=== PATIENT | male | born 1975 | race African-American/Black ===

== ENCOUNTER 2016-12-20 15:11 | Emergency (ER) | payer MEDICARE, MEDICAID ==
[~2016-12-20 15:11] MED LIST: AMLO10TA80 PO; ATOR10TA69 PO; BENA40TA3 PO; FLUT1DIS5 INH; FURO40TA5 PO; GABA-529 PO; IBUP-2030 PO; MAX PO; METF850T2 PO; METO5TAB2 PO; MONT10TA24 PO; NASOI INH; OMEP20CA4 PO; TIOT18CA3 INH
== END 2016-12-20 16:57 | disposition left against medical advice (07) ==
LOC: ER 16:12
DX: Z53.21 Procedure and treatment not carried out due to patient leaving prior to being seen by health care provider (principal)

== ENCOUNTER → 2018-02-22 | Day surgery (SDC) | payer MEDICARE, MEDICAID ==
[~2018-02-22] MED LIST changes: -BENA40TA3 PO; +BENA40TA9 PO; +LIDOCAINE HCL 1% 20ML VIAL (Pyxis) INJ ONE; +METF-415 PO; -METF850T2 PO; +SODIUM BICARBONATE 4% (2.4MEQ) 5ML VIAL IV ONE
== END | disposition home or self-care (01) ==
LOC: RAD 09:22
PROVIDERS: ATTEND Internal Medicine
DX: R59.9 Enlarged lymph nodes, unspecified (principal); J44.1 Chronic obstructive pulmonary disease with (acute) exacerbation; E78.00 Pure hypercholesterolemia, unspecified; I25.10 Atherosclerotic heart disease of native coronary artery without angina pectoris; I11.0 Hypertensive heart disease with heart failure; I50.30 Unspecified diastolic (congestive) heart failure; F17.210 Nicotine dependence, cigarettes, uncomplicated; Z95.0 Presence of cardiac pacemaker; Z98.890 Other specified postprocedural states; Z79.899 Other long term (current) drug therapy; Z79.1 Long term (current) use of non-steroidal anti-inflammatories (NSAID)
CPT/HCPCS: 38505; 76942; 88305; J3490

== ENCOUNTER 2018-06-19 14:05 | Inpatient (IN) | payer MEDICARE, MEDICAID ==
[~2018-06-19] VITALS: Ht 175.3 cm; Wt 144.2 kg
[~2018-06-19 14:05] MED LIST changes: -LIDOCAINE HCL 1% 20ML VIAL (Pyxis) INJ ONE; -SODIUM BICARBONATE 4% (2.4MEQ) 5ML VIAL IV ONE
[2018-06-19] MEDS ORDERED: SODIUM CHLORIDE 0.9% 1,000 ML IV ONE ×2 (15:13→17:55)
[2018-06-19 17:38] LABS: BASOPHILS % 0.5 % (0.0-2.0); EOSINOPHILS % 2.6 % (0.0-5.0); HEMATOCRIT. 34.3 % (42.0-52.0); HEMOGLOBIN. 10.3 g/dL (14.0-18.0); LYMPHOCYTES % 9.7 % (20.0-50.0); MEAN CORPUSCULAR HEMOGLOBIN 24.2 pg (28.0-32.0); MEAN CORPUSCULAR VOLUME 80.2 fL (80.0-94.0); MONOCYTES % 7.7 % (2.0-8.0); NEUTROPHILS % 79.5 % (40.0-76.0); PLATELET 371 x1000/uL (130-400); RED BLOOD CELL COUNT 4.28 mill/uL (4.7-6.1); RED CELL DISTRIBUTION WIDTH 19.8 % (11.6-14.6)
[2018-06-19 17:46] LABS: CHLORIDE 108 mEq/L (98-107)
[2018-06-19 17:48] LABS: CLARITY URINE CLEAR (CLEAR); COLOR URINE YELLOW (YELLOW); KETONES URINE NEGATIVE (NEGATIVE); LEUKOCYTE ESTERASE URINE NEGATIVE (NEGATIVE); NITRITE URINE NEGATIVE (NEGATIVE); OCCULT BLOOD URINE NEGATIVE (NEGATIVE); PROTEIN URINE NEGATIVE (NEGATIVE); SPECIFIC GRAVITY URINE 1.011 (1.005-1.030); UROBILINOGEN URINE 0.2 E.U./dL (0.2-1.0)
[2018-06-19 17:52] LABS: INR 1.1; PROTHROMBIN TIME 11.3 sec (9.1-11.1)
[2018-06-19] MEDS ORDERED: PAMIDRONATE DISODIUM 60 MG in SODIUM CHLORIDE 0.9% 500 ML IV ONE (21:30)
[2018-06-19 21:44] VITALS: BP 132/68
[2018-06-19 22:00] VITALS: BP 139/66
[2018-06-19] MEDS ORDERED: PAMIDRONATE DISODIUM 90 MG in SODIUM CHLORIDE 0.9% 500 ML IV NR (23:30)
[2018-06-20] VITALS (12 sets, daily range): BP systolic 94–140; BP diastolic 43–89
[2018-06-20] MEDS: ATORVASTATIN CALCIUM 10MG TABLET PO SCH ×2 (00:37→20:27)
[2018-06-20] MEDS: OMEPRAZOLE 20MG CAPSULE EXTENDED RELEASE PO SCH ×2 (00:37→20:28)
[2018-06-20] MEDS ORDERED: DILTIAZEM HCL 180MG CAPSULE CD 24HR PO SCH (01:00)
[2018-06-20] MEDS: IPRATROPIUM/ALBUTEROL 0.5-3(2.5)MG/3ML NEB HHN SCH ×4 (01:10→15:55)
[2018-06-20] MEDS: HYDROMORPHONE HCL 2MG TABLET PO PRN ×2 (03:05→08:40)
[2018-06-20 07:10] LABS: CHLORIDE 110 mEq/L (98-107)
[2018-06-20 07:18] LABS: HEMATOCRIT. 29.4 % (42.0-52.0); MEAN CORPUSCULAR HEMOGLOBIN 24.1 pg (28.0-32.0); MEAN CORPUSCULAR VOLUME 78.5 fL (80.0-94.0); MEAN PLATELET VOLUME 8.1 fl (7.4-10.4); PLATELET 380 x1000/uL (130-400); RED BLOOD CELL COUNT 3.75 mill/uL (4.7-6.1); RED CELL DISTRIBUTION WIDTH 19.8 % (11.6-14.6)
[2018-06-20 07:25] LABS: LDL CHOLESTEROL 68 mg/dL (5-100)
[2018-06-20 07:27] LABS: HDL CHOLESTEROL 46 mg/dL (40-59)
[2018-06-20] MEDS ORDERED: DILT180C54 PO (08:21)
[2018-06-20] MEDS: ALLOPURINOL 300 MG TABLET PO SCH (08:22)
[2018-06-20] MEDS: APIXABAN 5 MG TABLET PO SCH ×2 (08:23→17:26)
[2018-06-20] MEDS: BENAZEPRIL 10MG TABLET PO SCH ×3 (08:23→09:00)
[2018-06-20] MEDS ORDERED: HYDROMORPHONE PO (08:28)
[2018-06-20] MEDS ORDERED: ALLO300T2 PO (08:29)
[2018-06-20] MEDS ORDERED: APIX5TAB PO (08:31)
[2018-06-20] MEDS ORDERED: [UNRECOGNIZED DRUG - OTHER] PO (08:31)
[2018-06-20] MEDS ORDERED: CHOL200077 PO (08:33)
[2018-06-20] MEDS: SODIUM CHLORIDE 0.45% 1,000 ML IV SCH (18:46)
[2018-06-20 19:55] LABS: T4 FREE 1.09 ng/dL (0.76-1.46)
[2018-06-21] VITALS (12 sets, daily range): BP systolic 94–139; BP diastolic 46–101
[2018-06-21] MEDS: HYDROMORPHONE HCL 2MG TABLET PO PRN (04:19)
[2018-06-21 04:46] LABS: PLATELET ESTIMATE NORMAL
[2018-06-21] MEDS: IPRATROPIUM/ALBUTEROL 0.5-3(2.5)MG/3ML NEB HHN SCH ×4 (04:55→20:58)
[2018-06-21 06:56] LABS: CHLORIDE 107 mEq/L (98-107)
[2018-06-21 07:06] LABS: HEMATOCRIT. 33.1 % (42.0-52.0); HEMOGLOBIN. 10.1 g/dL (14.0-18.0); MEAN CORPUSCULAR HEMOGLOBIN 24.5 pg (28.0-32.0); MEAN CORPUSCULAR VOLUME 80.6 fL (80.0-94.0); PLATELET 361 x1000/uL (130-400); RED BLOOD CELL COUNT 4.11 mill/uL (4.7-6.1); RED CELL DISTRIBUTION WIDTH 19.6 % (11.6-14.6)
[2018-06-21] MEDS: IPRATROPIUM/ALBUTEROL 0.5-3(2.5)MG/3ML NEB HHN PRN (07:32)
[2018-06-21] MEDS: APIXABAN 5 MG TABLET PO SCH ×2 (09:23→17:14)
[2018-06-21] MEDS: ALLOPURINOL 300 MG TABLET PO SCH (09:23)
[2018-06-21] MEDS: BENAZEPRIL 10MG TABLET PO SCH (09:24)
[2018-06-21] MEDS ORDERED: OMEP40CA34 PO (13:28)
[2018-06-21] MEDS ORDERED: BENA20TA10 PO (13:28)
[2018-06-21] MEDS ORDERED: PRED10TA23 PO (13:35)
[2018-06-21] MEDS ORDERED: POTA20TA82 PO (13:35)
[2018-06-21] MEDS ORDERED: ALBU18HF2 IH (13:35)
[2018-06-21 13:44] LABS: PLATELET ESTIMATE NORMAL
[2018-06-21] MEDS: SODIUM CHLORIDE 0.45% 1,000 ML IV SCH (17:17)
[2018-06-21 17:35] LABS: BG BASE EXCESS 1.4 mmol/L (-2.0-2.0); BG CARBOXYHEMOGLOBIN 0.1 % (0.5-1.5); BG DEOXYHEMOGLOBIN 7.1 % (0.0-5.0); BG FRACTION INSPIRED OXYGEN 30; BG HCO3 ACT 26.4 mmol/L (22.0-26.0); BG METHEMOGLOBIN 0.3 % (0.0-1.5); BG OXYGEN SATURATION 92.9 % (92.0-98.5); BG OXYHEMOGLOBIN 92.5 % (94.0-97.0); BG PCO2 43.6 mmHg (35.0-45.0); BG PO2 64.9 mmHg (75.0-100.0); BG SAMPLE SITE RIGHT RADIAL; BG TOTAL HEMOGLOBIN 9.7 g/dL (12.0-18.0); BG VENT MODE NASAL CANNULA
[2018-06-21 19:16] LABS: PHOSPHORUS 1.9 mg/dL (2.5-4.9)
[2018-06-21] MEDS: ATORVASTATIN CALCIUM 10MG TABLET PO SCH (20:47)
[2018-06-21] MEDS: OMEPRAZOLE 20MG CAPSULE EXTENDED RELEASE PO SCH (20:47)
[2018-06-21] MEDS: CARTIA XT 180 MG PO SCH (20:51)
[2018-06-21] MEDS: FUROSEMIDE 40MG/4ML VIAL IVP SCH (22:09)
[2018-06-21] MEDS: METOPROLOL TARTRATE 25MG TABLET PO SCH (23:45)
[2018-06-22] VITALS (12 sets, daily range): BP systolic 106–141; BP diastolic 38–95
[2018-06-22] MEDS: IPRATROPIUM/ALBUTEROL 0.5-3(2.5)MG/3ML NEB HHN PRN ×2 (00:44→04:41)
[2018-06-22] MEDS: SODIUM CHLORIDE 0.45% 1,000 ML IV SCH ×3 (03:34→21:17)
[2018-06-22] MEDS: HYDROMORPHONE HCL 2MG TABLET PO PRN (06:23)
[2018-06-22 06:52] LABS: CHLORIDE 105 mEq/L (98-107)
[2018-06-22 07:04] LABS: PHOSPHORUS 1.8 mg/dL (2.5-4.9)
[2018-06-22] MEDS: IPRATROPIUM/ALBUTEROL 0.5-3(2.5)MG/3ML NEB HHN SCH ×5 (07:42→23:26)
[2018-06-22 08:59] LABS: BG BASE EXCESS 6.2 mmol/L (-2.0-2.0); BG CARBOXYHEMOGLOBIN 0.8 % (0.5-1.5); BG DEOXYHEMOGLOBIN 4.8 % (0.0-5.0); BG FRACTION INSPIRED OXYGEN 28; BG HCO3 ACT 30.8 mmol/L (22.0-26.0); BG OXYGEN SATURATION 95.2 % (92.0-98.5); BG OXYHEMOGLOBIN 94.4 % (94.0-97.0); BG PCO2 45.3 mmHg (35.0-45.0); BG PH 7.451 (7.350-7.450); BG PO2 71.7 mmHg (75.0-100.0); BG SAMPLE SITE RIGHT BRACHIAL; BG TOTAL HEMOGLOBIN 9.8 g/dL (12.0-18.0); BG VENT MODE NASAL CANNULA
[2018-06-22] MEDS: POTASSIUM-SODIUM PHOSPHATE POWDER PACKET PO SCH ×2 (09:26→17:16)
[2018-06-22] MEDS: ALLOPURINOL 300 MG TABLET PO SCH (09:27)
[2018-06-22] MEDS: METOPROLOL TARTRATE 25MG TABLET PO SCH ×2 (09:27→21:26)
[2018-06-22] MEDS: APIXABAN 5 MG TABLET PO SCH ×2 (09:27→17:16)
[2018-06-22] MEDS: BENAZEPRIL 10MG TABLET PO SCH (09:27)
[2018-06-22] MEDS: CARTIA XT 180 MG PO SCH (09:28)
[2018-06-22] MEDS ORDERED: POTASSIUM PHOS,M-BASIC-D-BASIC 15 MMOL in DEXT 5% WATER 245 ML IV SCH (11:00)
[2018-06-22] MEDS: MAGNESIUM 2 G PREMIX 50 ML IV SCH ×2 (11:23→13:00)
[2018-06-22] MEDS: FUROSEMIDE 40MG/4ML VIAL IVP SCH ×2 (11:25→13:00)
[2018-06-22] MEDS ORDERED: LIDOCAINE HCL/PF 1% 2ML VIAL ONE (14:10)
[2018-06-22] MEDS: ATORVASTATIN CALCIUM 10MG TABLET PO SCH (21:24)
[2018-06-22] MEDS: ENOXAPARIN 150MG/ML SYR SUBCUT SCH (22:30)
[2018-06-23] VITALS (12 sets, daily range): BP systolic 108–139; BP diastolic 51–72
[2018-06-23] MEDS: HYDROMORPHONE HCL 2MG TABLET PO PRN ×3 (00:03→22:39)
[2018-06-23] MEDS: IPRATROPIUM/ALBUTEROL 0.5-3(2.5)MG/3ML NEB HHN SCH ×5 (02:30→21:23)
[2018-06-23] MEDS: SODIUM CHLORIDE 0.45% 1,000 ML IV SCH ×4 (04:03→22:44)
[2018-06-23 07:09] LABS: BASOPHILS % 1.2 % (0.0-2.0); EOSINOPHILS % 5.1 % (0.0-5.0); HEMATOCRIT. 32.6 % (42.0-52.0); LYMPHOCYTES % 13.6 % (20.0-50.0); MEAN CORPUSCULAR HEMOGLOBIN 24.4 pg (28.0-32.0); MEAN CORPUSCULAR VOLUME 79.5 fL (80.0-94.0); MEAN PLATELET VOLUME 8.1 fl (7.4-10.4); MONOCYTES % 9.9 % (2.0-8.0); NEUTROPHILS % 70.2 % (40.0-76.0); PLATELET 391 x1000/uL (130-400); RED BLOOD CELL COUNT 4.09 mill/uL (4.7-6.1); RED CELL DISTRIBUTION WIDTH 19.5 % (11.6-14.6)
[2018-06-23 07:14] LABS: CHLORIDE 103 mEq/L (98-107)
[2018-06-23 07:35] LABS: PHOSPHORUS 2.7 mg/dL (2.5-4.9)
[2018-06-23] MEDS: FUROSEMIDE 40MG/4ML VIAL IVP SCH (08:43)
[2018-06-23] MEDS: CARTIA XT 180 MG PO SCH (08:44)
[2018-06-23] MEDS: FAMOTIDINE 20MG TABLET PO SCH ×2 (08:45→22:04)
[2018-06-23] MEDS: BENAZEPRIL 10MG TABLET PO SCH (08:46)
[2018-06-23] MEDS: ALLOPURINOL 300 MG TABLET PO SCH (08:46)
[2018-06-23] MEDS: POTASSIUM-SODIUM PHOSPHATE POWDER PACKET PO SCH ×2 (08:47→17:08)
[2018-06-23] MEDS: METOPROLOL TARTRATE 25MG TABLET PO SCH ×2 (08:47→21:00)
[2018-06-23 09:06] LABS: BG BASE EXCESS 2.8 mmol/L (-2.0-2.0); BG CARBOXYHEMOGLOBIN 0.3 % (0.5-1.5); BG DEOXYHEMOGLOBIN 6.3 % (0.0-5.0); BG FRACTION INSPIRED OXYGEN 32; BG HCO3 ACT 28.5 mmol/L (22.0-26.0); BG METHEMOGLOBIN 0.3 % (0.0-1.5); BG OXYGEN SATURATION 93.7 % (92.0-98.5); BG OXYHEMOGLOBIN 93.1 % (94.0-97.0); BG PCO2 49.5 mmHg (35.0-45.0); BG PH 7.378 (7.350-7.450); BG PO2 72.2 mmHg (75.0-100.0); BG SAMPLE SITE RIGHT RADIAL; BG TOTAL HEMOGLOBIN 9.9 g/dL (12.0-18.0); BG VENT MODE NASAL CANNULA
[2018-06-23] MEDS: ENOXAPARIN 150MG/ML SYR SUBCUT SCH ×2 (09:59→22:09)
[2018-06-23] MEDS ORDERED: LIDOCAINE HCL 1% 20ML VIAL (Pyxis) INJ ONE (15:10)
[2018-06-23] MEDS ORDERED: SODIUM BICARBONATE 4% (2.4MEQ) 5ML VIAL IV ONE (15:10)
[2018-06-23] MEDS ORDERED: MAGNESIUM 2 G PREMIX 50 ML IV SCH (16:00)
[2018-06-23] MEDS: ATORVASTATIN CALCIUM 10MG TABLET PO SCH (22:03)
[2018-06-24] VITALS (12 sets, daily range): BP systolic 95–131; BP diastolic 55–85
[2018-06-24] MEDS: HYDROMORPHONE HCL 2MG TABLET PO PRN ×2 (05:31→18:44)
[2018-06-24 06:59] LABS: HEPATITIS B SURFACE AB < 3.1 mIU/mL
[2018-06-24 07:09] LABS: HEPATITIS B SURFACE ANTIGEN NEGATIVE
[2018-06-24 07:16] LABS: BASOPHILS % 1.1 % (0.0-2.0); EOSINOPHILS % 3.7 % (0.0-5.0); HEMATOCRIT. 30.9 % (42.0-52.0); HEMOGLOBIN. 9.5 g/dL (14.0-18.0); LYMPHOCYTES % 10.9 % (20.0-50.0); MEAN CORPUSCULAR HEMOGLOBIN 24.4 pg (28.0-32.0); MEAN CORPUSCULAR VOLUME 79.2 fL (80.0-94.0); MEAN PLATELET VOLUME 8.7 fl (7.4-10.4); MONOCYTES % 9.7 % (2.0-8.0); NEUTROPHILS % 74.6 % (40.0-76.0); PLATELET 362 x1000/uL (130-400)
[2018-06-24 08:02] LABS: CHLORIDE 101 mEq/L (98-107)
[2018-06-24 08:10] LABS: PHOSPHORUS 2.1 mg/dL (2.5-4.9)
[2018-06-24] MEDS: POTASSIUM-SODIUM PHOSPHATE POWDER PACKET PO SCH ×2 (08:54→17:00)
[2018-06-24] MEDS: BENAZEPRIL 10MG TABLET PO SCH (08:54)
[2018-06-24] MEDS: CARTIA XT 180 MG PO SCH (08:54)
[2018-06-24] MEDS: FUROSEMIDE 40MG/4ML VIAL IVP SCH (08:55)
[2018-06-24] MEDS: FAMOTIDINE 20MG TABLET PO SCH ×2 (08:55→21:39)
[2018-06-24] MEDS: ALLOPURINOL 300 MG TABLET PO SCH (08:55)
[2018-06-24] MEDS: METOPROLOL TARTRATE 25MG TABLET PO SCH ×2 (08:55→21:39)
[2018-06-24] MEDS: IPRATROPIUM/ALBUTEROL 0.5-3(2.5)MG/3ML NEB HHN SCH ×4 (09:14→20:29)
[2018-06-24] MEDS: ENOXAPARIN 150MG/ML SYR SUBCUT SCH ×2 (09:59→21:39)
[2018-06-24] MEDS: SODIUM CHLORIDE 0.45% 1,000 ML IV SCH (09:59)
[2018-06-24] MEDS: POTASSIUM CHLORIDE 20MEQ TABLET SR PO SCH ×2 (10:45→11:17)
[2018-06-24] MEDS ORDERED: POTASSIUM-SODIUM PHOSPHATE POWDER PACKET PO SCH (10:45)
[2018-06-24] MEDS: SODIUM CHLORIDE 0.9% 1,000 ML IV SCH (12:29)
[2018-06-24] MEDS ORDERED: ALTEPLASE 2MG/VIAL ITC NR ×2 (16:45)
[2018-06-24] MEDS: ATORVASTATIN CALCIUM 10MG TABLET PO SCH (21:39)
[2018-06-25] VITALS (12 sets, daily range): BP systolic 94–154; BP diastolic 51–127
[2018-06-25] MEDS: IPRATROPIUM/ALBUTEROL 0.5-3(2.5)MG/3ML NEB HHN PRN (01:36)
[2018-06-25] MEDS: SODIUM CHLORIDE 0.9% 1,000 ML IV SCH ×2 (04:27→21:56)
[2018-06-25 06:26] LABS: BASOPHILS % 1.2 % (0.0-2.0); EOSINOPHILS % 4.2 % (0.0-5.0); HEMATOCRIT. 33.8 % (42.0-52.0); HEMOGLOBIN. 10.6 g/dL (14.0-18.0); LYMPHOCYTES % 13.3 % (20.0-50.0); MEAN CORPUSCULAR HEMOGLOBIN 24.6 pg (28.0-32.0); MEAN CORPUSCULAR VOLUME 78.9 fL (80.0-94.0); MEAN PLATELET VOLUME 8.4 fl (7.4-10.4); MONOCYTES % 8.1 % (2.0-8.0); NEUTROPHILS % 73.2 % (40.0-76.0); PLATELET 366 x1000/uL (130-400); RED BLOOD CELL COUNT 4.28 mill/uL (4.7-6.1); RED CELL DISTRIBUTION WIDTH 19.4 % (11.6-14.6)
[2018-06-25 07:07] LABS: CHLORIDE 103 mEq/L (98-107)
[2018-06-25 07:40] LABS: PHOSPHORUS 2.3 mg/dL (2.5-4.9)
[2018-06-25] MEDS ORDERED: HEPARIN 1000 UNITS/ML 10ML ONE (08:27)
[2018-06-25] MEDS ORDERED: LIDOCAINE HCL 1% 20ML VIAL (Pyxis) INJ ONE (08:27)
[2018-06-25] MEDS: IPRATROPIUM/ALBUTEROL 0.5-3(2.5)MG/3ML NEB HHN SCH ×2 (09:00→21:30)
[2018-06-25] MEDS: BENAZEPRIL 10MG TABLET PO SCH (09:00)
[2018-06-25] MEDS: METOPROLOL TARTRATE 25MG TABLET PO SCH ×2 (09:00→22:03)
[2018-06-25] MEDS: POTASSIUM-SODIUM PHOSPHATE POWDER PACKET PO SCH ×3 (09:36→16:53)
[2018-06-25] MEDS: FUROSEMIDE 40MG/4ML VIAL IVP SCH (09:36)
[2018-06-25] MEDS: FAMOTIDINE 20MG TABLET PO SCH ×2 (09:36→22:00)
[2018-06-25] MEDS: CARTIA XT 180 MG PO SCH (09:36)
[2018-06-25] MEDS: ALLOPURINOL 300 MG TABLET PO SCH (09:37)
[2018-06-25] MEDS: ENOXAPARIN 150MG/ML SYR SUBCUT SCH ×2 (09:42→22:00)
[2018-06-25] MEDS: HYDROMORPHONE HCL/PF 2MG/ML CPJ IV PRN ×2 (12:39→22:13)
[2018-06-25] MEDS ORDERED: POTASSIUM PHOS,M-BASIC-D-BASIC 20 MMOL in DEXT 5% WATER 243.3333 ML IV NR (16:00)
[2018-06-25] MEDS: GUAIFENESIN 600MG ER TABLET PO SCH (22:00)
[2018-06-25] MEDS: ATORVASTATIN CALCIUM 10MG TABLET PO SCH (22:00)
[2018-06-26] VITALS (12 sets, daily range): BP systolic 93–131; BP diastolic 46–70
[2018-06-26 06:51] LABS: MEAN CORPUSCULAR HEMOGLOBIN 24.4 pg (28.0-32.0); MEAN CORPUSCULAR VOLUME 79.1 fL (80.0-94.0); MEAN PLATELET VOLUME 7.8 fl (7.4-10.4); PLATELET 309 x1000/uL (130-400); RED BLOOD CELL COUNT 3.67 mill/uL (4.7-6.1); RED CELL DISTRIBUTION WIDTH 19.2 % (11.6-14.6)
[2018-06-26 08:50] LABS: CHLORIDE 105 mEq/L (98-107)
[2018-06-26 08:59] LABS: PHOSPHORUS 3.4 mg/dL (2.5-4.9)
[2018-06-26] MEDS: IPRATROPIUM/ALBUTEROL 0.5-3(2.5)MG/3ML NEB HHN SCH ×4 (08:59→21:18)
[2018-06-26] MEDS: ALLOPURINOL 300 MG TABLET PO SCH (09:55)
[2018-06-26] MEDS: FAMOTIDINE 20MG TABLET PO SCH ×2 (09:55→21:15)
[2018-06-26] MEDS: CARTIA XT 180 MG PO SCH (09:55)
[2018-06-26] MEDS: GUAIFENESIN 600MG ER TABLET PO SCH ×2 (09:55→21:15)
[2018-06-26] MEDS: FUROSEMIDE 40MG/4ML VIAL IVP SCH (09:55)
[2018-06-26] MEDS: POTASSIUM-SODIUM PHOSPHATE POWDER PACKET PO SCH ×3 (09:56→17:16)
[2018-06-26] MEDS: ENOXAPARIN 150MG/ML SYR SUBCUT SCH (09:57)
[2018-06-26] MEDS: BENAZEPRIL 10MG TABLET PO SCH (09:57)
[2018-06-26] MEDS: METOPROLOL TARTRATE 25MG TABLET PO SCH ×2 (09:58→21:17)
[2018-06-26] MEDS: HYDROMORPHONE HCL/PF 2MG/ML CPJ IV PRN ×2 (11:11→21:16)
[2018-06-26 12:01] LABS: PLATELET ESTIMATE NORMAL
[2018-06-26 13:06] LABS: HIV SCREEN 4G Non Reactive (Non Reactive)
[2018-06-26] MEDS: SODIUM CHLORIDE 0.9% 1,000 ML IV SCH (13:27)
[2018-06-26] MEDS ORDERED: MAGNESIUM 2 G PREMIX 50 ML IV NR (13:30)
[2018-06-26] MEDS: ATORVASTATIN CALCIUM 10MG TABLET PO SCH (21:15)
[2018-06-26] MEDS: CINACALCET HCL 30MG TABLET PO SCH (21:15)
[2018-06-27] VITALS (23 sets, daily range): BP systolic 89–138; BP diastolic 41–75
[2018-06-27 06:21] LABS: BASOPHILS % 1.2 % (0.0-2.0); EOSINOPHILS % 2.9 % (0.0-5.0); HEMATOCRIT. 26.9 % (42.0-52.0); HEMOGLOBIN. 8.3 g/dL (14.0-18.0); MEAN CORPUSCULAR HEMOGLOBIN 24.5 pg (28.0-32.0); MONOCYTES % 11.6 % (2.0-8.0); NEUTROPHILS % 72.3 % (40.0-76.0); PLATELET 311 x1000/uL (130-400); RED CELL DISTRIBUTION WIDTH 18.8 % (11.6-14.6)
[2018-06-27] MEDS: IPRATROPIUM/ALBUTEROL 0.5-3(2.5)MG/3ML NEB HHN SCH ×3 (06:30→16:20)
[2018-06-27 06:40] LABS: CHLORIDE 105 mEq/L (98-107)
[2018-06-27 07:12] LABS: PHOSPHORUS 4.3 mg/dL (2.5-4.9)
[2018-06-27] MEDS: ALLOPURINOL 300 MG TABLET PO SCH (08:28)
[2018-06-27] MEDS: GUAIFENESIN 600MG ER TABLET PO SCH ×2 (08:28→22:48)
[2018-06-27] MEDS: CINACALCET HCL 30MG TABLET PO SCH ×2 (08:29→22:49)
[2018-06-27] MEDS: FAMOTIDINE 20MG TABLET PO SCH ×2 (08:29→22:49)
[2018-06-27] MEDS: POTASSIUM-SODIUM PHOSPHATE POWDER PACKET PO SCH ×3 (08:30→17:00)
[2018-06-27] MEDS ORDERED: LIDOCAINE HCL 1% 20ML VIAL (Pyxis) INJ ONE (08:44)
[2018-06-27] MEDS ORDERED: SODIUM BICARBONATE 4% (2.4MEQ) 5ML VIAL IV ONE (08:44)
[2018-06-27] MEDS ORDERED: CEFAZOLIN 1000MG PREMIX 50 ML IV SCH (09:00)
[2018-06-27] MEDS: BENAZEPRIL 10MG TABLET PO SCH (09:00)
[2018-06-27] MEDS: METOPROLOL TARTRATE 25MG TABLET PO SCH ×2 (09:00→22:48)
[2018-06-27] MEDS ORDERED: CEFAZOLIN 1000MG PREMIX 50 ML IV ONE (09:06)
[2018-06-27] MEDS ORDERED: FENTANYL CITRATE/PF 50MCG/ML 2ML VIAL ONE (09:07)
[2018-06-27] MEDS ORDERED: FENTANYL CITRATE/PF 50MCG/ML 2ML VIAL IV NR (09:45)
[2018-06-27] MEDS: HYDROMORPHONE HCL/PF 2MG/ML CPJ IV PRN ×3 (10:42→22:50)
[2018-06-27] MEDS ORDERED: PAMIDRONATE DISODIUM 90 MG in SODIUM CHLORIDE 0.9% 1,000 ML IV SCH (11:00)
[2018-06-27] MEDS: CARTIA XT 180 MG PO SCH (12:35)
[2018-06-27] MEDS: ATORVASTATIN CALCIUM 10MG TABLET PO SCH (22:40)
[2018-06-27] MEDS: PIPERACILLIN/TAZ 3.375G PREMIX 50 ML IV SCH (22:40)
[2018-06-28] VITALS: BP 132/73
[2018-06-28 00:26] LABS: BG BASE EXCESS -0.2 mmol/L (-2.0-2.0); BG CARBOXYHEMOGLOBIN 0.3 % (0.5-1.5); BG FRACTION INSPIRED OXYGEN 28; BG HCO3 ACT 24.2 mmol/L (22.0-26.0); BG METHEMOGLOBIN 0.3 % (0.0-1.5); BG OXYHEMOGLOBIN 94.4 % (94.0-97.0); BG PH 7.421 (7.350-7.450); BG PO2 76.3 mmHg (75.0-100.0); BG SAMPLE SITE RIGHT RADIAL; BG TOTAL HEMOGLOBIN 9.3 g/dL (12.0-18.0); BG VENT MODE ROOM AIR
[2018-06-28] MEDS: PIPERACILLIN/TAZ 3.375G PREMIX 50 ML IV SCH ×2 (03:54→10:20)
[2018-06-28 04:00] VITALS: BP 107/45
[2018-06-28 07:14] LABS: HEMATOCRIT. 27.9 % (42.0-52.0); HEMOGLOBIN. 8.6 g/dL (14.0-18.0); MEAN CORPUSCULAR HEMOGLOBIN 24.3 pg (28.0-32.0); MEAN CORPUSCULAR VOLUME 79.2 fL (80.0-94.0); MEAN PLATELET VOLUME 8.1 fl (7.4-10.4); PLATELET 306 x1000/uL (130-400); RED BLOOD CELL COUNT 3.52 mill/uL (4.7-6.1); RED CELL DISTRIBUTION WIDTH 19.2 % (11.6-14.6)
[2018-06-28 07:36] LABS: CLARITY URINE CLOUDY (CLEAR); COLOR URINE YELLOW (YELLOW); KETONES URINE NEGATIVE (NEGATIVE); LEUKOCYTE ESTERASE URINE NEGATIVE (NEGATIVE); NITRITE URINE NEGATIVE (NEGATIVE); OCCULT BLOOD URINE NEGATIVE (NEGATIVE); PH URINE 6.5 (4.5-8.0); PROTEIN URINE 1+ (NEGATIVE); SPECIFIC GRAVITY URINE 1.011 (1.005-1.030)
[2018-06-28 07:48] LABS: CHLORIDE 105 mEq/L (98-107)
[2018-06-28 08:00] VITALS: BP 136/52
[2018-06-28] MEDS: GUAIFENESIN 600MG ER TABLET PO SCH (08:20)
[2018-06-28] MEDS: BENAZEPRIL 10MG TABLET PO SCH (08:21)
[2018-06-28] MEDS: ALLOPURINOL 300 MG TABLET PO SCH (08:22)
[2018-06-28] MEDS: FAMOTIDINE 20MG TABLET PO SCH (08:22)
[2018-06-28] MEDS: METOPROLOL TARTRATE 25MG TABLET PO SCH (08:22)
[2018-06-28] MEDS: CARTIA XT 180 MG PO SCH (08:23)
[2018-06-28] MEDS: POTASSIUM-SODIUM PHOSPHATE POWDER PACKET PO SCH ×2 (08:23→13:00)
[2018-06-28] MEDS: CINACALCET HCL 30MG TABLET PO SCH (08:28)
[2018-06-28] MEDS: IPRATROPIUM/ALBUTEROL 0.5-3(2.5)MG/3ML NEB HHN SCH ×3 (08:52→16:44)
[2018-06-28 09:43] LABS: PLATELET ESTIMATE NORMAL
[2018-06-28] MEDS: HYDROMORPHONE HCL/PF 2MG/ML CPJ IV PRN ×2 (10:37→15:46)
[2018-06-28 12:09] VITALS: BP 106/63
[2018-06-28 15:44] VITALS: BP 127/64
[2018-06-28 16:03] VITALS: BP 126/62
== END 2018-06-28 18:40 | disposition home or self-care (01) | DRG 180 ==
LOC: ER 14:05 → 3WST 16:23 → EDBEDREQ 16:27 → ENRESERV 20:34 → 3WST 06-24 13:33 → 6WST 06-27 10:24
PROVIDERS: ADMIT Internal Medicine; ATTEND Internal Medicine
PROC: B5181ZA Fluoroscopy of Superior Vena Cava using Low Osmolar Contrast, Guidance (ICD-10-PCS; 2018-06-23)
PROC: B548ZZA Ultrasonography of Superior Vena Cava, Guidance (ICD-10-PCS; 2018-06-23)
PROC: 02HV33Z Insertion of Infusion Device into Superior Vena Cava, Percutaneous Approach (ICD-10-PCS; 2018-06-23)
PROC: 5A1D70Z Performance of Urinary Filtration, Intermittent, Less than 6 Hours Per Day (ICD-10-PCS; 2018-06-23)
PROC: 02PYX3Z Removal of Infusion Device from Great Vessel, External Approach (ICD-10-PCS; 2018-06-25)
PROC: 02H633Z Insertion of Infusion Device into Right Atrium, Percutaneous Approach (ICD-10-PCS; 2018-06-25)
PROC: B2141ZZ Fluoroscopy of Right Heart using Low Osmolar Contrast (ICD-10-PCS; 2018-06-25)
PROC: 5A1D70Z Performance of Urinary Filtration, Intermittent, Less than 6 Hours Per Day (ICD-10-PCS; 2018-06-25)
PROC: 5A1D70Z Performance of Urinary Filtration, Intermittent, Less than 6 Hours Per Day (ICD-10-PCS; 2018-06-26)
PROC: 0JH63XZ Insertion of Tunneled Vascular Access Device into Chest Subcutaneous Tissue and Fascia, Percutaneous Approach (ICD-10-PCS; principal; 2018-06-27)
PROC: 02HV33Z Insertion of Infusion Device into Superior Vena Cava, Percutaneous Approach (ICD-10-PCS; 2018-06-27)
PROC: B5181ZA Fluoroscopy of Superior Vena Cava using Low Osmolar Contrast, Guidance (ICD-10-PCS; 2018-06-27)
DX: C34.90 Malignant neoplasm of unspecified part of unspecified bronchus or lung (principal); E88.3 Tumor lysis syndrome; G93.41 Metabolic encephalopathy; E46 Unspecified protein-calorie malnutrition; E87.2 Acidosis; I82.C12 Acute embolism and thrombosis of left internal jugular vein; N17.9 Acute kidney failure, unspecified; E87.4 Mixed disorder of acid-base balance; Z68.42 Body mass index [BMI] 45.0-49.9, adult; T82.41XA Breakdown (mechanical) of vascular dialysis catheter, initial encounter; C14.0 Malignant neoplasm of pharynx, unspecified; E83.52 Hypercalcemia; E66.01 Morbid (severe) obesity due to excess calories; J44.9 Chronic obstructive pulmonary disease, unspecified; E11.9 Type 2 diabetes mellitus without complications; E78.00 Pure hypercholesterolemia, unspecified; D64.81 Anemia due to antineoplastic chemotherapy; D63.0 Anemia in neoplastic disease; G47.30 Sleep apnea, unspecified; D72.829 Elevated white blood cell count, unspecified; E78.5 Hyperlipidemia, unspecified; E83.39 Other disorders of phosphorus metabolism; G47.33 Obstructive sleep apnea (adult) (pediatric); I48.91 Unspecified atrial fibrillation; M10.9 Gout, unspecified; C44.92 Squamous cell carcinoma of skin, unspecified; I50.9 Heart failure, unspecified; I11.0 Hypertensive heart disease with heart failure; Z96.651 Presence of right artificial knee joint; R62.7 Adult failure to thrive; T45.1X5A Adverse effect of antineoplastic and immunosuppressive drugs, initial encounter; Y92.89 Other specified places as the place of occurrence of the external cause; Z79.01 Long term (current) use of anticoagulants; Z82.49 Family history of ischemic heart disease and other diseases of the circulatory system; Z83.3 Family history of diabetes mellitus; Z85.46 Personal history of malignant neoplasm of prostate; Z86.718 Personal history of other venous thrombosis and embolism; Z87.891 Personal history of nicotine dependence; Z95.0 Presence of cardiac pacemaker; Z79.84 Long term (current) use of oral hypoglycemic drugs; Z79.899 Other long term (current) drug therapy; Z92.3 Personal history of irradiation; Z92.21 Personal history of antineoplastic chemotherapy
CPT/HCPCS: 36415; 36556; 36558; 36569; 36589; 36600; 70490; 71045; 71250; 73630; 76770; 77001; 80048; 80061; 82140; 82330; 82375; 82533; 82805; 82962; 83605; 83615; 83735; 83880; 83970; 84100; 84134; 84145; 84439; 84443; 84484; 84550; 85007; 85027; 86705; 86706; 86803; 87340; 87389; 93005; 93970; 94640; 96365; 97116; 97162; 97166; 97530; 99152; 99285; C1750; C1752; C1769; C1887; J0690; J1170; J1642; J1644; J1650; J1940; J2430; J2543; J2997; J3010; J3475; J3490; J7030; J7040; J7050; J7060; J7620; G0500

== ENCOUNTER 2018-07-04 09:15 | Inpatient (IN) | payer MEDICARE, MEDICAID ==
[~2018-07-04] VITALS: Ht 180.3 cm; Wt 134.7 kg
[~2018-07-04 09:15] MED LIST changes: +ALBU18HF2 IH; +ALLO300T2 PO; -AMLO10TA80 PO; +APIX5TAB PO; +BENA20TA10 PO; -BENA40TA9 PO; +CHOL200077 PO; +DILT180C54 PO; -FURO40TA5 PO; -GABA-529 PO; -MAX PO; -NASOI INH; -OMEP20CA4 PO; +OMEP40CA34 PO; +PRED10TA23 PO
[2018-07-04] MEDS ORDERED: SODIUM CHLORIDE 0.9% 500 ML IV ONE (10:36)
[2018-07-04 10:54] LABS: HEMATOCRIT. 28.2 % (42.0-52.0); HEMOGLOBIN. 8.7 g/dL (14.0-18.0); MEAN CORPUSCULAR HEMOGLOBIN 24.5 pg (28.0-32.0); MEAN PLATELET VOLUME 7.4 fl (7.4-10.4); PLATELET 450 x1000/uL (130-400); RED BLOOD CELL COUNT 3.57 mill/uL (4.7-6.1); RED CELL DISTRIBUTION WIDTH 18.8 % (11.6-14.6)
[2018-07-04 11:01] LABS: CHLORIDE 97 mEq/L (98-107)
[2018-07-04 11:02] LABS: INR 1.2; PROTHROMBIN TIME 12.2 sec (9.6-11.0)
[2018-07-04 11:37] LABS: PLATELET ESTIMATE INCREASED
[2018-07-04] MEDS ORDERED: MORPHINE SULFATE 2 MG/ML CPJ (NOT FOR IM USE) IV ONE (12:30)
[2018-07-04] MEDS ORDERED: VISCOUS LIDOCAINE 2% 15 ML UDC MM ONE (12:30)
[2018-07-04] MEDS ORDERED: MORPHINE SULFATE 4 MG/ML CPJ (NOT FOR IM USE) IV ONE (12:45)
[2018-07-04 13:04] LABS: CLARITY URINE CLOUDY (CLEAR); COLOR URINE YELLOW (YELLOW); KETONES URINE TRACE (NEGATIVE); LEUKOCYTE ESTERASE URINE 1+ (NEGATIVE); NITRITE URINE NEGATIVE (NEGATIVE); OCCULT BLOOD URINE NEGATIVE (NEGATIVE); PROTEIN URINE 1+ (NEGATIVE); SPECIFIC GRAVITY URINE 1.016 (1.005-1.030)
[2018-07-04] MEDS ORDERED: FUROSEMIDE 100MG/10ML VIAL IVP SCH (13:15)
[2018-07-04 13:43] LABS: BG BASE EXCESS 1.1 mmol/L (-2.0-2.0); BG CARBOXYHEMOGLOBIN 0.1 % (0.5-1.5); BG DEOXYHEMOGLOBIN 12.2 % (0.0-5.0); BG HCO3 ACT 26.9 mmol/L (22.0-26.0); BG METHEMOGLOBIN 0.3 % (0.0-1.5); BG OXYGEN SATURATION 87.8 % (92.0-98.5); BG OXYHEMOGLOBIN 87.4 % (94.0-97.0); BG PCO2 48.6 mmHg (35.0-45.0); BG PH 7.361 (7.350-7.450); BG PO2 57.1 mmHg (75.0-100.0); BG SAMPLE SITE RIGHT BRACHIAL; BG TOTAL HEMOGLOBIN 9.4 g/dL (12.0-18.0); BG VENT MODE NASAL CANNULA
[2018-07-04] MEDS ORDERED: PAMIDRONATE DISODIUM 90 MG in SODIUM CHLORIDE 0.9% 1,000 ML IV ONE (14:00)
[2018-07-04] MEDS: SODIUM CHLORIDE 0.9% 1,000 ML IV SCH (14:13)
[2018-07-04] MEDS ORDERED: ACETAMINOPHEN 650MG SUPP PR PRN (18:00)
[2018-07-04] MEDS ORDERED: POTASSIUM CHLORIDE 20MEQ TABLET SR PO NR (18:00)
[2018-07-04] MEDS ORDERED: MAGNESIUM/ALUMINUM HYDROXIDE/SIMETHICONE 30ML UDC PO PRN (18:00)
[2018-07-04] MEDS ORDERED: LORAZEPAM 0.5MG TABLET PO PRN (18:00)
[2018-07-04] MEDS ORDERED: ACETAMINOPHEN 325MG TABLET PO PRN (18:00)
[2018-07-04] MEDS ORDERED: DOCUSATE SODIUM 100MG CAPSULE PO PRN (18:00)
[2018-07-04] MEDS ORDERED: DEXTROSE 50% WATER 50ML SYRINGE IV PRN (18:00)
[2018-07-04] MEDS ORDERED: ONDANSETRON HCL 4MG/2ML INJ IV PRN (18:00)
[2018-07-04] MEDS ORDERED: CLONIDINE 0.1MG TABLET PO PRN (18:00)
[2018-07-04] MEDS ORDERED: PIPERACILLIN/TAZ 3.375G PREMIX 50 ML IV NR (19:00)
[2018-07-04] MEDS ORDERED: DILTIAZEM HCL 5MG/ML 5ML VIAL IV ONE (23:00)
[2018-07-05] VITALS (9 sets, daily range): BP systolic 91–146; BP diastolic 55–84
[2018-07-05] MEDS ORDERED: NA PHOS,M-B/NA PHOS,DI-BA ENEMA 118ML PR PRN (03:25)
[2018-07-05] MEDS ORDERED: PIPERACILLIN/TAZ 3.375G PREMIX 50 ML IV SCH (04:00)
[2018-07-05] MEDS ORDERED: EPOETIN ALFA 10000UNITS/ML VIAL SUBCUT SCH (04:00)
[2018-07-05] MEDS: SODIUM CHLORIDE 0.9% 1,000 ML IV SCH ×4 (05:00→20:01)
[2018-07-05] MEDS ORDERED: VANCOMYCIN 1,000 MG in DEXT 5% WATER 250 ML IV SCH (05:00)
[2018-07-05] MEDS: DIPHENHYDRAMINE 50MG/ML VIAL IV PRN (06:22)
[2018-07-05 07:42] LABS: CHLORIDE 103 mEq/L (98-107)
[2018-07-05 07:58] LABS: PHOSPHORUS 2.1 mg/dL (2.5-4.9)
[2018-07-05 08:11] LABS: EOSINOPHILS % 1.2 % (0.0-5.0); HEMATOCRIT. 29.8 % (42.0-52.0); HEMOGLOBIN. 9.2 g/dL (14.0-18.0); LYMPHOCYTES % 9.1 % (20.0-50.0); MEAN CORPUSCULAR HEMOGLOBIN 24.8 pg (28.0-32.0); MEAN CORPUSCULAR VOLUME 80.2 fL (80.0-94.0); MEAN PLATELET VOLUME 8.3 fl (7.4-10.4); MONOCYTES % 9.8 % (2.0-8.0); NEUTROPHILS % 78.9 % (40.0-76.0); PLATELET 471 x1000/uL (130-400); RED BLOOD CELL COUNT 3.72 mill/uL (4.7-6.1)
[2018-07-05] MEDS ORDERED: LIDOCAINE HCL/PF 1% 2ML VIAL ONE (10:05)
[2018-07-05] MEDS ORDERED: MAGNESIUM 2 G PREMIX 50 ML IV NR (10:30)
[2018-07-05] MEDS ORDERED: SODIUM PHOS,M-BASIC-D-BASIC 20 MM in DEXT 5% WATER 243.3333 ML IV NR (10:30)
[2018-07-05] MEDS ORDERED: DIGOXIN 500MCG/2ML AMP IV SCH ×2 (10:45→18:30)
[2018-07-05] MEDS ORDERED: METOPROLOL TARTRATE 5MG/5ML VIAL IV SCH (10:45)
[2018-07-05] MEDS: HYDROCODONE/ACETAMINOPHEN 5/325MG TABLET PO PRN ×2 (11:30→17:19)
[2018-07-05] MEDS: BLOOD SUGAR DIAGNOSTIC STRIP TEST SCH ×3 (11:50→21:03)
[2018-07-05] MEDS: INSULIN LISPRO 100 UNITS/ML SUBCUT SCH ×3 (12:20→21:00)
[2018-07-05] MEDS ORDERED: DIGOXIN 125MCG TABLET PO SCH (12:30)
[2018-07-05] MEDS ORDERED: HEPARIN SODIUM 1,000 UNIT/1ML VIAL IV NR (14:45)
[2018-07-05] MEDS: PIPERACILLIN/TAZ 3.375G PREMIX 50 ML IV SCH ×2 (15:12→22:54)
[2018-07-05] MEDS: IPRATROPIUM/ALBUTEROL 0.5-3(2.5)MG/3ML NEB INH PRN (16:28)
[2018-07-05] MEDS: HEPARIN 5000 UNITS/ML VIAL SUBCUT SCH ×2 (16:53→23:24)
[2018-07-05] MEDS: VANCOMYCIN 1250MG in DEXTROSE 5% WATER 250ML IV SCH (18:00)
[2018-07-05 18:52] LABS: BG CARBOXYHEMOGLOBIN 0.2 % (0.5-1.5); BG FRACTION INSPIRED OXYGEN 32; BG HCO3 ACT 28.7 mmol/L (22.0-26.0); BG METHEMOGLOBIN 0.4 % (0.0-1.5); BG OXYHEMOGLOBIN 93.4 % (94.0-97.0); BG PCO2 44.1 mmHg (35.0-45.0); BG PH 7.432 (7.350-7.450); BG PO2 69.2 mmHg (75.0-100.0); BG SAMPLE SITE RIGHT RADIAL; BG TOTAL HEMOGLOBIN 8.7 g/dL (12.0-18.0); BG VENT MODE NASAL CANNULA
[2018-07-05] MEDS: HYDROMORPHONE HCL/PF 2MG/ML CPJ IV PRN (23:30)
[2018-07-05] MEDS: NYSTATIN POWDER 15GM TOP SCH (23:36)
[2018-07-06] VITALS (12 sets, daily range): BP systolic 99–131; BP diastolic 48–98
[2018-07-06] MEDS: PIPERACILLIN/TAZ 3.375G PREMIX 50 ML IV SCH ×4 (04:51→22:53)
[2018-07-06] MEDS: SODIUM CHLORIDE 0.9% 1,000 ML IV SCH ×2 (05:50→13:38)
[2018-07-06] MEDS: VANCOMYCIN 1250MG in DEXTROSE 5% WATER 250ML IV SCH ×2 (06:24→17:28)
[2018-07-06] MEDS: BLOOD SUGAR DIAGNOSTIC STRIP TEST SCH ×4 (06:51→21:29)
[2018-07-06] MEDS: INSULIN LISPRO 100 UNITS/ML SUBCUT SCH ×4 (07:20→21:00)
[2018-07-06 08:00] LABS: BASOPHILS % 1.2 % (0.0-2.0); EOSINOPHILS % 3.2 % (0.0-5.0); HEMATOCRIT. 26.8 % (42.0-52.0); HEMOGLOBIN. 8.4 g/dL (14.0-18.0); LYMPHOCYTES % 10.7 % (20.0-50.0); MEAN CORPUSCULAR HEMOGLOBIN 24.9 pg (28.0-32.0); MEAN CORPUSCULAR VOLUME 79.8 fL (80.0-94.0); MEAN PLATELET VOLUME 8.3 fl (7.4-10.4); MONOCYTES % 9.3 % (2.0-8.0); NEUTROPHILS % 75.6 % (40.0-76.0); PLATELET 426 x1000/uL (130-400); RED BLOOD CELL COUNT 3.36 mill/uL (4.7-6.1); RED CELL DISTRIBUTION WIDTH 18.8 % (11.6-14.6)
[2018-07-06] MEDS: TAMSULOSIN HCL 0.4MG SR CAPSULE PO SCH (08:11)
[2018-07-06] MEDS: ALLOPURINOL 300 MG TABLET PO SCH (08:11)
[2018-07-06] MEDS: HEPARIN 5000 UNITS/ML VIAL SUBCUT SCH ×2 (08:13→20:28)
[2018-07-06] MEDS: NYSTATIN POWDER 15GM TOP SCH ×2 (08:18→17:47)
[2018-07-06 09:48] LABS: CHLORIDE 100 mEq/L (98-107)
[2018-07-06 10:07] LABS: PHOSPHORUS 2.5 mg/dL (2.5-4.9)
[2018-07-06] MEDS: POTASSIUM CHLORIDE 20MEQ TABLET SR PO NR ×2 (10:15→11:08)
[2018-07-06 10:23] LABS: DIGOXIN 0.6 ng/mL (0.9-2.0)
[2018-07-06] MEDS ORDERED: CARVEDILOL 3.125 MG TABLET PO SCH (11:00)
[2018-07-06] MEDS ORDERED: DIGOXIN 500MCG/2ML AMP IV SCH (12:45)
[2018-07-06] MEDS ORDERED: KCL 20MEQ/100ML PREMIX 100 ML IV NR (16:00)
[2018-07-06] MEDS: IPRATROPIUM/ALBUTEROL 0.5-3(2.5)MG/3ML NEB INH PRN (16:20)
[2018-07-06] MEDS: DIGOXIN 500MCG/2ML AMP IV SCH (17:47)
[2018-07-06] MEDS: CARVEDILOL 3.125 MG TABLET PO SCH (20:26)
[2018-07-07] VITALS (12 sets, daily range): BP systolic 96–140; BP diastolic 46–95
[2018-07-07] MEDS: SODIUM CHLORIDE 0.9% 1,000 ML IV SCH ×2 (00:34→10:31)
[2018-07-07] MEDS: PIPERACILLIN/TAZ 3.375G PREMIX 50 ML IV SCH ×3 (04:04→16:06)
[2018-07-07] MEDS: IPRATROPIUM/ALBUTEROL 0.5-3(2.5)MG/3ML NEB INH PRN ×2 (04:46→21:51)
[2018-07-07] MEDS: VANCOMYCIN 1250MG in DEXTROSE 5% WATER 250ML IV SCH (06:20)
[2018-07-07] MEDS: BLOOD SUGAR DIAGNOSTIC STRIP TEST SCH ×4 (06:25→21:45)
[2018-07-07 06:42] LABS: BASOPHILS % 1.3 % (0.0-2.0); EOSINOPHILS % 2.9 % (0.0-5.0); HEMATOCRIT. 26.9 % (42.0-52.0); HEMOGLOBIN. 8.3 g/dL (14.0-18.0); LYMPHOCYTES % 9.3 % (20.0-50.0); MEAN CORPUSCULAR HEMOGLOBIN 24.4 pg (28.0-32.0); MEAN CORPUSCULAR VOLUME 79.2 fL (80.0-94.0); MONOCYTES % 11.2 % (2.0-8.0); NEUTROPHILS % 75.3 % (40.0-76.0); PLATELET 417 x1000/uL (130-400); RED CELL DISTRIBUTION WIDTH 18.6 % (11.6-14.6)
[2018-07-07 07:02] LABS: CHLORIDE 104 mEq/L (98-107)
[2018-07-07 07:09] LABS: PHOSPHORUS 2.5 mg/dL (2.5-4.9)
[2018-07-07] MEDS: INSULIN LISPRO 100 UNITS/ML SUBCUT SCH ×4 (07:20→21:00)
[2018-07-07] MEDS: HEPARIN 5000 UNITS/ML VIAL SUBCUT SCH ×2 (09:17→21:51)
[2018-07-07] MEDS: ALLOPURINOL 300 MG TABLET PO SCH (09:18)
[2018-07-07] MEDS: TAMSULOSIN HCL 0.4MG SR CAPSULE PO SCH (09:18)
[2018-07-07] MEDS: CARVEDILOL 3.125 MG TABLET PO SCH (09:18)
[2018-07-07] MEDS: NYSTATIN POWDER 15GM TOP SCH ×2 (09:19→16:13)
[2018-07-07] MEDS ORDERED: MAGNESIUM 2 G PREMIX 50 ML IV NR (10:00)
[2018-07-07] MEDS ORDERED: METOPROLOL TARTRATE 25MG TABLET PO NR (16:00)
[2018-07-07] MEDS: DIGOXIN 500MCG/2ML AMP IV SCH (17:35)
[2018-07-08] VITALS: BP 109/65
[2018-07-08] MEDS: PIPERACILLIN/TAZ 3.375G PREMIX 50 ML IV SCH ×5 (02:28→21:48)
[2018-07-08] MEDS: SODIUM CHLORIDE 0.9% 1,000 ML IV SCH ×3 (02:29→22:40)
[2018-07-08] MEDS: VANCOMYCIN 1 G PREMIX 200 ML IV SCH ×3 (02:29→19:28)
[2018-07-08 04:00] VITALS: BP 110/67
[2018-07-08 05:50] LABS: CHLORIDE 101 mEq/L (98-107)
[2018-07-08 05:56] LABS: PHOSPHORUS 1.9 mg/dL (2.5-4.9)
[2018-07-08 06:06] LABS: BASOPHILS % 0.8 % (0.0-2.0); EOSINOPHILS % 2.2 % (0.0-5.0); HEMATOCRIT. 26.6 % (42.0-52.0); HEMOGLOBIN. 8.3 g/dL (14.0-18.0); LYMPHOCYTES % 10.1 % (20.0-50.0); MEAN CORPUSCULAR VOLUME 80.6 fL (80.0-94.0); MEAN PLATELET VOLUME 8.1 fl (7.4-10.4); MONOCYTES % 8.4 % (2.0-8.0); NEUTROPHILS % 78.5 % (40.0-76.0); PLATELET 393 x1000/uL (130-400); RED BLOOD CELL COUNT 3.31 mill/uL (4.7-6.1); RED CELL DISTRIBUTION WIDTH 18.4 % (11.6-14.6)
[2018-07-08] MEDS: BLOOD SUGAR DIAGNOSTIC STRIP TEST SCH ×4 (06:39→21:21)
[2018-07-08] MEDS: INSULIN LISPRO 100 UNITS/ML SUBCUT SCH ×4 (07:47→21:00)
[2018-07-08 08:00] VITALS: BP 128/65
[2018-07-08] MEDS: NYSTATIN POWDER 15GM TOP SCH ×2 (09:00→17:00)
[2018-07-08] MEDS ORDERED: METOPROLOL TARTRATE 25MG TABLET PO SCH (09:00)
[2018-07-08] MEDS: ALLOPURINOL 300 MG TABLET PO SCH (09:45)
[2018-07-08] MEDS: HEPARIN 5000 UNITS/ML VIAL SUBCUT SCH ×2 (09:46→21:21)
[2018-07-08] MEDS: TAMSULOSIN HCL 0.4MG SR CAPSULE PO SCH (09:46)
[2018-07-08] MEDS: METOPROLOL TARTRATE 25MG TABLET PO SCH ×2 (09:47→21:28)
[2018-07-08] MEDS: IPRATROPIUM/ALBUTEROL 0.5-3(2.5)MG/3ML NEB INH PRN ×3 (11:43→21:59)
[2018-07-08 12:00] VITALS: BP 103/45
[2018-07-08] MEDS: PANTOPRAZOLE SODIUM 40 MG/VIAL IV SCH (15:25)
[2018-07-08 16:00] VITALS: BP 109/69
[2018-07-08] MEDS ORDERED: KCL 20MEQ/100ML PREMIX 100 ML IV SCH (16:00)
[2018-07-08] MEDS: POTASSIUM PHOS,M-BASIC-D-BASIC 30 MMOL in DEXT 5% WATER 500 ML IV SCH (17:11)
[2018-07-08] MEDS: MAGNESIUM 4 G PREMIX 100 ML IV SCH ×2 (17:11→21:54)
[2018-07-08] MEDS: DIGOXIN 500MCG/2ML AMP IV SCH (19:28)
[2018-07-08 20:00] VITALS: BP 143/82
[2018-07-08] MEDS: DICYCLOMINE HCL 10MG/ML 2ML AMP IM PRN (20:03)
[2018-07-09] VITALS: BP 113/60
[2018-07-09] MEDS: NYSTATIN POWDER 15GM TOP SCH ×3 (01:02→17:00)
[2018-07-09] MEDS: POTASSIUM PHOS,M-BASIC-D-BASIC 30 MMOL in DEXT 5% WATER 500 ML IV SCH (02:12)
[2018-07-09 04:00] VITALS: BP 106/45
[2018-07-09] MEDS: PIPERACILLIN/TAZ 3.375G PREMIX 50 ML IV SCH ×4 (04:43→22:10)
[2018-07-09] MEDS: IPRATROPIUM/ALBUTEROL 0.5-3(2.5)MG/3ML NEB INH PRN ×4 (05:20→17:22)
[2018-07-09] MEDS: BLOOD SUGAR DIAGNOSTIC STRIP TEST SCH ×3 (05:53→21:56)
[2018-07-09 06:03] LABS: CHLORIDE 101 mEq/L (98-107)
[2018-07-09 06:09] LABS: PHOSPHORUS 3.2 mg/dL (2.5-4.9)
[2018-07-09 06:10] LABS: BASOPHILS % 0.9 % (0.0-2.0); EOSINOPHILS % 1.8 % (0.0-5.0); HEMATOCRIT. 27.8 % (42.0-52.0); HEMOGLOBIN. 8.5 g/dL (14.0-18.0); LYMPHOCYTES % 9.3 % (20.0-50.0); MEAN CORPUSCULAR HEMOGLOBIN 24.2 pg (28.0-32.0); MEAN CORPUSCULAR VOLUME 79.2 fL (80.0-94.0); MEAN PLATELET VOLUME 8.1 fl (7.4-10.4); MONOCYTES % 9.1 % (2.0-8.0); NEUTROPHILS % 78.9 % (40.0-76.0); PLATELET 435 x1000/uL (130-400); RED BLOOD CELL COUNT 3.51 mill/uL (4.7-6.1); RED CELL DISTRIBUTION WIDTH 18.8 % (11.6-14.6)
[2018-07-09] MEDS: INSULIN LISPRO 100 UNITS/ML SUBCUT SCH ×3 (07:48→21:00)
[2018-07-09 08:05] VITALS: BP 95/60
[2018-07-09] MEDS: METOPROLOL TARTRATE 25MG TABLET PO SCH ×2 (08:33→22:10)
[2018-07-09] MEDS: PANTOPRAZOLE SODIUM 40 MG/VIAL IV SCH (08:34)
[2018-07-09] MEDS: TAMSULOSIN HCL 0.4MG SR CAPSULE PO SCH (08:35)
[2018-07-09] MEDS: ALLOPURINOL 300 MG TABLET PO SCH (08:37)
[2018-07-09] MEDS: HEPARIN 5000 UNITS/ML VIAL SUBCUT SCH ×2 (08:37→22:11)
[2018-07-09 12:00] VITALS: BP 145/65
[2018-07-09] MEDS: VANCOMYCIN 1 G PREMIX 200 ML IV SCH (13:02)
[2018-07-09] MEDS: SODIUM CHLORIDE 0.9% 1,000 ML IV SCH ×2 (13:15→22:11)
[2018-07-09 15:40] VITALS: BP 118/72
[2018-07-09] MEDS: DIGOXIN 500MCG/2ML AMP IV SCH (18:11)
[2018-07-09] MEDS: HYDROMORPHONE HCL/PF 2MG/ML CPJ IV PRN (18:21)
[2018-07-09 20:00] VITALS: BP 133/39
[2018-07-10] VITALS: BP 130/51
[2018-07-10 04:00] VITALS: BP 106/62
[2018-07-10] MEDS: PIPERACILLIN/TAZ 3.375G PREMIX 50 ML IV SCH ×4 (04:13→20:47)
[2018-07-10] MEDS: HYDROMORPHONE HCL/PF 2MG/ML CPJ IV PRN (04:14)
[2018-07-10] MEDS: VANCOMYCIN 1 G PREMIX 200 ML IV SCH (05:43)
[2018-07-10] MEDS: BLOOD SUGAR DIAGNOSTIC STRIP TEST SCH ×4 (05:43→20:34)
[2018-07-10 06:31] LABS: BASOPHILS % 0.9 % (0.0-2.0); EOSINOPHILS % 2.6 % (0.0-5.0); HEMATOCRIT. 25.4 % (42.0-52.0); HEMOGLOBIN. 7.9 g/dL (14.0-18.0); LYMPHOCYTES % 8.9 % (20.0-50.0); MEAN CORPUSCULAR HEMOGLOBIN 25.5 pg (28.0-32.0); MEAN CORPUSCULAR VOLUME 81.9 fL (80.0-94.0); MONOCYTES % 9.8 % (2.0-8.0); NEUTROPHILS % 77.8 % (40.0-76.0); PLATELET 392 x1000/uL (130-400); RED CELL DISTRIBUTION WIDTH 18.3 % (11.6-14.6)
[2018-07-10] MEDS: INSULIN LISPRO 100 UNITS/ML SUBCUT SCH ×4 (07:41→20:35)
[2018-07-10] MEDS: HEPARIN 5000 UNITS/ML VIAL SUBCUT SCH ×2 (07:50→20:40)
[2018-07-10] MEDS: METOPROLOL TARTRATE 25MG TABLET PO SCH ×2 (07:50→20:40)
[2018-07-10] MEDS: ALLOPURINOL 300 MG TABLET PO SCH ×2 (07:50→07:56)
[2018-07-10] MEDS: TAMSULOSIN HCL 0.4MG SR CAPSULE PO SCH (07:51)
[2018-07-10] MEDS: PANTOPRAZOLE SODIUM 40 MG/VIAL IV SCH (07:51)
[2018-07-10 08:00] VITALS: BP 113/56
[2018-07-10 08:58] LABS: CHLORIDE 104 mEq/L (98-107)
[2018-07-10] MEDS: NYSTATIN POWDER 15GM TOP SCH ×2 (09:00→17:00)
[2018-07-10 09:09] LABS: PHOSPHORUS 2.3 mg/dL (2.5-4.9)
[2018-07-10] MEDS: SODIUM CHLORIDE 0.9% 1,000 ML IV SCH ×3 (09:15→20:40)
[2018-07-10 12:00] VITALS: BP 138/50
[2018-07-10] MEDS: METHYLPREDNISOLONE SOD SUCC 40 MG/ML VIAL IV SCH ×2 (13:38→22:26)
[2018-07-10] MEDS ORDERED: SODIUM PHOS,M-BASIC-D-BASIC 15 MM in DEXT 5% WATER 245 ML IV SCH (15:00)
[2018-07-10 16:00] VITALS: BP 140/83
[2018-07-10] MEDS: DIGOXIN 500MCG/2ML AMP IV SCH (17:19)
[2018-07-10 20:00] VITALS: BP 167/86
[2018-07-10] MEDS: IPRATROPIUM/ALBUTEROL 0.5-3(2.5)MG/3ML NEB HHN SCH (20:55)
[2018-07-10] MEDS: GUAIFENESIN 200MG/10ML SUGAR FREE UDC PO PRN (21:58)
[2018-07-10] MEDS: DICYCLOMINE HCL 10MG/ML 2ML AMP IM PRN (22:26)
[2018-07-11] VITALS: BP 118/67
[2018-07-11] MEDS: IPRATROPIUM/ALBUTEROL 0.5-3(2.5)MG/3ML NEB HHN SCH ×6 (00:07→20:40)
[2018-07-11 04:00] VITALS: BP 145/85
[2018-07-11] MEDS: SODIUM CHLORIDE 0.9% 1,000 ML IV SCH ×3 (04:20→19:46)
[2018-07-11] MEDS: PIPERACILLIN/TAZ 3.375G PREMIX 50 ML IV SCH ×4 (04:20→21:36)
[2018-07-11] MEDS: BLOOD SUGAR DIAGNOSTIC STRIP TEST SCH ×4 (05:19→21:17)
[2018-07-11 07:02] LABS: BASOPHILS % 0.3 % (0.0-2.0); HEMATOCRIT. 26.9 % (42.0-52.0); HEMOGLOBIN. 8.2 g/dL (14.0-18.0); LYMPHOCYTES % 7.3 % (20.0-50.0); MEAN CORPUSCULAR HEMOGLOBIN 24.2 pg (28.0-32.0); MEAN CORPUSCULAR VOLUME 79.4 fL (80.0-94.0); MEAN PLATELET VOLUME 8.1 fl (7.4-10.4); MONOCYTES % 2.8 % (2.0-8.0); NEUTROPHILS % 89.6 % (40.0-76.0); PLATELET 415 x1000/uL (130-400); RED BLOOD CELL COUNT 3.39 mill/uL (4.7-6.1); RED CELL DISTRIBUTION WIDTH 19.2 % (11.6-14.6)
[2018-07-11 07:41] LABS: CHLORIDE 102 mEq/L (98-107)
[2018-07-11 07:49] LABS: PHOSPHORUS 3.2 mg/dL (2.5-4.9)
[2018-07-11 08:00] VITALS: BP 126/88
[2018-07-11] MEDS: INSULIN LISPRO 100 UNITS/ML SUBCUT SCH ×4 (08:10→21:00)
[2018-07-11] MEDS: METHYLPREDNISOLONE SOD SUCC 40 MG/ML VIAL IV SCH ×2 (08:56→21:35)
[2018-07-11] MEDS: PANTOPRAZOLE SODIUM 40 MG/VIAL IV SCH (08:56)
[2018-07-11] MEDS: HEPARIN 5000 UNITS/ML VIAL SUBCUT SCH ×2 (08:56→21:35)
[2018-07-11] MEDS: METOPROLOL TARTRATE 25MG TABLET PO SCH ×2 (08:57→21:35)
[2018-07-11] MEDS: ALLOPURINOL 300 MG TABLET PO SCH (09:59)
[2018-07-11] MEDS: TAMSULOSIN HCL 0.4MG SR CAPSULE PO SCH (10:00)
[2018-07-11] MEDS: NYSTATIN POWDER 15GM TOP SCH ×2 (10:02→20:11)
[2018-07-11 12:00] VITALS: BP 138/80
[2018-07-11] MEDS ORDERED: VANCOMYCIN 1 G PREMIX 200 ML IV SCH (14:00)
[2018-07-11 16:00] VITALS: BP 130/74
[2018-07-11] MEDS ORDERED: PAMIDRONATE DISODIUM 90 MG in SODIUM CHLORIDE 0.9% 1,000 ML IV SCH (17:00)
[2018-07-11] MEDS: FUROSEMIDE 100MG/10ML VIAL IVP SCH (19:45)
[2018-07-11] MEDS: DIGOXIN 500MCG/2ML AMP IV SCH (19:46)
[2018-07-11 20:00] VITALS: BP 120/59
[2018-07-11] MEDS: GUAIFENESIN 200MG/10ML SUGAR FREE UDC PO PRN (21:38)
[2018-07-11] MEDS ORDERED: HYDROCODONE/APAP 7.5/325MG 1 TAB TABLET PO PRN (23:00)
[2018-07-12] VITALS: BP 111/63
[2018-07-12] MEDS: HYDROMORPHONE HCL/PF 2MG/ML CPJ IV PRN (00:20)
[2018-07-12] MEDS: IPRATROPIUM/ALBUTEROL 0.5-3(2.5)MG/3ML NEB HHN SCH ×6 (00:47→21:04)
[2018-07-12 04:00] VITALS: BP 122/79
[2018-07-12] MEDS: PIPERACILLIN/TAZ 3.375G PREMIX 50 ML IV SCH ×4 (04:36→22:41)
[2018-07-12] MEDS: BLOOD SUGAR DIAGNOSTIC STRIP TEST SCH ×4 (05:03→21:00)
[2018-07-12 06:19] LABS: HEMATOCRIT. 27.6 % (42.0-52.0); HEMOGLOBIN. 8.4 g/dL (14.0-18.0); MEAN CORPUSCULAR HEMOGLOBIN 24.9 pg (28.0-32.0); PLATELET 470 x1000/uL (130-400); RED BLOOD CELL COUNT 3.37 mill/uL (4.7-6.1); RED CELL DISTRIBUTION WIDTH 18.9 % (11.6-14.6)
[2018-07-12 08:00] VITALS: BP 122/62
[2018-07-12 09:39] LABS: CHLORIDE 104 mEq/L (98-107)
[2018-07-12 09:48] LABS: PHOSPHORUS 2.2 mg/dL (2.5-4.9)
[2018-07-12] MEDS: METHYLPREDNISOLONE SOD SUCC 40 MG/ML VIAL IV SCH ×2 (10:34→22:40)
[2018-07-12] MEDS: FUROSEMIDE 100MG/10ML VIAL IVP SCH (10:34)
[2018-07-12] MEDS: PANTOPRAZOLE SODIUM 40 MG/VIAL IV SCH (10:34)
[2018-07-12] MEDS: HEPARIN 5000 UNITS/ML VIAL SUBCUT SCH ×2 (10:36→22:40)
[2018-07-12] MEDS: NYSTATIN POWDER 15GM TOP SCH ×2 (10:37→19:34)
[2018-07-12] MEDS: ALLOPURINOL 300 MG TABLET PO SCH (10:51)
[2018-07-12] MEDS: TAMSULOSIN HCL 0.4MG SR CAPSULE PO SCH (10:51)
[2018-07-12 10:52] LABS: PLATELET ESTIMATE INCREASED
[2018-07-12] MEDS: METOPROLOL TARTRATE 25MG TABLET PO SCH ×2 (10:52→22:40)
[2018-07-12 12:00] VITALS: BP 143/81
[2018-07-12] MEDS ORDERED: DIGOXIN 500MCG/2ML AMP ONE (16:19)
[2018-07-12] MEDS: VANCOMYCIN 1 G PREMIX 200 ML IV SCH (19:01)
[2018-07-12] MEDS: DIGOXIN 500MCG/2ML AMP IV SCH (19:02)
[2018-07-12 20:00] VITALS: BP 141/78
[2018-07-12] MEDS: INSULIN LISPRO 100 UNITS/ML SUBCUT SCH (21:00)
[2018-07-12] MEDS: GUAIFENESIN 200MG/10ML SUGAR FREE UDC PO PRN (22:58)
[2018-07-13] VITALS: BP 137/78
[2018-07-13] MEDS: IPRATROPIUM/ALBUTEROL 0.5-3(2.5)MG/3ML NEB HHN SCH ×6 (00:38→20:52)
[2018-07-13 04:00] VITALS: BP 125/73
[2018-07-13] MEDS: PIPERACILLIN/TAZ 3.375G PREMIX 50 ML IV SCH ×3 (04:18→21:14)
[2018-07-13] MEDS: BLOOD SUGAR DIAGNOSTIC STRIP TEST SCH ×4 (06:14→21:14)
[2018-07-13 06:54] LABS: HEMOGLOBIN. 8.5 g/dL (14.0-18.0); MEAN CORPUSCULAR HEMOGLOBIN 24.4 pg (28.0-32.0); MEAN CORPUSCULAR VOLUME 80.7 fL (80.0-94.0); MEAN PLATELET VOLUME 8.1 fl (7.4-10.4); PLATELET 427 x1000/uL (130-400); RED BLOOD CELL COUNT 3.47 mill/uL (4.7-6.1); RED CELL DISTRIBUTION WIDTH 19.6 % (11.6-14.6)
[2018-07-13 07:02] LABS: CHLORIDE 105 mEq/L (98-107)
[2018-07-13 07:10] LABS: PHOSPHORUS 2.1 mg/dL (2.5-4.9)
[2018-07-13 08:00] VITALS: BP 120/85
[2018-07-13] MEDS: INSULIN LISPRO 100 UNITS/ML SUBCUT SCH ×4 (08:10→21:00)
[2018-07-13] MEDS: ALLOPURINOL 300 MG TABLET PO SCH (09:48)
[2018-07-13] MEDS: METOPROLOL TARTRATE 25MG TABLET PO SCH ×2 (09:48→21:13)
[2018-07-13] MEDS: TAMSULOSIN HCL 0.4MG SR CAPSULE PO SCH (09:48)
[2018-07-13] MEDS: PANTOPRAZOLE SODIUM 40 MG/VIAL IV SCH (09:49)
[2018-07-13] MEDS: METHYLPREDNISOLONE SOD SUCC 40 MG/ML VIAL IV SCH (09:49)
[2018-07-13] MEDS: FUROSEMIDE 100MG/10ML VIAL IVP SCH (09:49)
[2018-07-13] MEDS: HEPARIN 5000 UNITS/ML VIAL SUBCUT SCH ×2 (09:51→21:14)
[2018-07-13] MEDS: NYSTATIN POWDER 15GM TOP SCH ×2 (09:52→17:56)
[2018-07-13 09:54] LABS: PLATELET ESTIMATE SLIGHTLY INCREASED
[2018-07-13] MEDS: VANCOMYCIN 1 G PREMIX 200 ML IV SCH (09:55)
[2018-07-13 12:00] VITALS: BP 118/79
[2018-07-13] MEDS: BUDESONIDE 0.5MG/2ML NEB HHN SCH ×2 (14:00→20:52)
[2018-07-13] MEDS ORDERED: POTASSIUM PHOS,M-BASIC-D-BASIC 15 MMOL in DEXT 5% WATER 245 ML IV SCH (14:30)
[2018-07-13 16:00] VITALS: BP 123/87
[2018-07-13] MEDS: DIGOXIN 500MCG/2ML AMP IV SCH (17:49)
[2018-07-13 20:00] VITALS: BP 122/68
[2018-07-13] MEDS: HYDROMORPHONE HCL/PF 2MG/ML CPJ IV PRN (21:42)
[2018-07-14] VITALS: BP 151/79
[2018-07-14] MEDS ORDERED: METOPROLOL TARTRATE 100MG TABLET PO ONE (00:30)
[2018-07-14] MEDS: IPRATROPIUM/ALBUTEROL 0.5-3(2.5)MG/3ML NEB HHN SCH ×6 (00:36→21:20)
[2018-07-14] MEDS ORDERED: METOPROLOL TARTRATE 50MG TABLET PO SCH (00:45)
[2018-07-14 04:00] VITALS: BP 140/85
[2018-07-14] MEDS: PIPERACILLIN/TAZ 3.375G PREMIX 50 ML IV SCH ×4 (04:15→21:25)
[2018-07-14] MEDS: VANCOMYCIN 1 G PREMIX 200 ML IV SCH ×2 (04:50→22:47)
[2018-07-14 06:28] LABS: BASOPHILS % 0.4 % (0.0-2.0); EOSINOPHILS % 0.1 % (0.0-5.0); HEMATOCRIT. 26.3 % (42.0-52.0); HEMOGLOBIN. 8.2 g/dL (14.0-18.0); LYMPHOCYTES % 12.9 % (20.0-50.0); MEAN CORPUSCULAR VOLUME 80.1 fL (80.0-94.0); NEUTROPHILS % 79.6 % (40.0-76.0); PLATELET 422 x1000/uL (130-400); RED BLOOD CELL COUNT 3.29 mill/uL (4.7-6.1); RED CELL DISTRIBUTION WIDTH 19.4 % (11.6-14.6)
[2018-07-14] MEDS: BLOOD SUGAR DIAGNOSTIC STRIP TEST SCH ×4 (07:40→21:25)
[2018-07-14 08:00] VITALS: BP 134/72
[2018-07-14] MEDS: INSULIN LISPRO 100 UNITS/ML SUBCUT SCH ×4 (08:10→21:00)
[2018-07-14] MEDS: BUDESONIDE 0.5MG/2ML NEB HHN SCH ×2 (08:13→21:20)
[2018-07-14] MEDS: ALLOPURINOL 300 MG TABLET PO SCH (09:31)
[2018-07-14] MEDS: TAMSULOSIN HCL 0.4MG SR CAPSULE PO SCH (09:32)
[2018-07-14] MEDS: PANTOPRAZOLE SODIUM 40 MG/VIAL IV SCH (09:33)
[2018-07-14] MEDS: METHYLPREDNISOLONE SOD SUCC 40 MG/ML VIAL IV SCH (09:33)
[2018-07-14] MEDS: FUROSEMIDE 100MG/10ML VIAL IVP SCH (09:33)
[2018-07-14] MEDS: METOPROLOL TARTRATE 50MG TABLET PO SCH ×2 (09:34→21:25)
[2018-07-14] MEDS: NYSTATIN POWDER 15GM TOP SCH ×2 (09:36→17:00)
[2018-07-14] MEDS: HEPARIN 5000 UNITS/ML VIAL SUBCUT SCH ×2 (09:36→21:25)
[2018-07-14 09:40] LABS: CHLORIDE 105 mEq/L (98-107)
[2018-07-14 09:52] LABS: PHOSPHORUS 2.9 mg/dL (2.5-4.9)
[2018-07-14 12:00] VITALS: BP 164/77
[2018-07-14] MEDS ORDERED: POTASSIUM CHLORIDE INJ 40 MEQ in DEXT 5% WATER 250 ML IV NR (12:00)
[2018-07-14] MEDS ORDERED: LIDOCAINE HCL 1% 20ML VIAL (Pyxis) INJ ONE (13:51)
[2018-07-14] MEDS ORDERED: GELATIN SPONGE,ABSORBABLE 12-7MM SPONGE ONE (13:52)
[2018-07-14 16:00] VITALS: BP 183/99
[2018-07-14] MEDS: DIGOXIN 500MCG/2ML AMP IV SCH (18:21)
[2018-07-14 20:00] VITALS: BP 119/66
[2018-07-14] MEDS: DIPHENHYDRAMINE 50MG/ML VIAL IV PRN (21:35)
[2018-07-14] MEDS: GUAIFENESIN 200MG/10ML SUGAR FREE UDC PO PRN (21:35)
[2018-07-15] VITALS: BP 125/86
[2018-07-15] MEDS: IPRATROPIUM/ALBUTEROL 0.5-3(2.5)MG/3ML NEB HHN SCH ×4 (00:49→13:08)
[2018-07-15] MEDS: PIPERACILLIN/TAZ 3.375G PREMIX 50 ML IV SCH ×2 (03:50→08:52)
[2018-07-15 04:00] VITALS: BP 126/92
[2018-07-15 06:07] LABS: HEMATOCRIT 28.1 % (42.0-52.0); HEMOGLOBIN 8.7 g/dL (14.0-18.0); MEAN CORPUSCULAR VOLUME 80.5 fL (80.0-94.0); PLATELET 441 x1000/uL (130-400); RED BLOOD CELL COUNT 3.49 mill/uL (4.7-6.1); RED CELL DISTRIBUTION WIDTH 19.6 % (11.6-14.6)
[2018-07-15 06:12] LABS: CHLORIDE 103 mEq/L (98-107)
[2018-07-15] MEDS: INSULIN LISPRO 100 UNITS/ML SUBCUT SCH ×2 (07:50→13:05)
[2018-07-15] MEDS: BLOOD SUGAR DIAGNOSTIC STRIP TEST SCH ×2 (07:50→12:02)
[2018-07-15 08:00] VITALS: BP 135/76
[2018-07-15] MEDS: HEPARIN 5000 UNITS/ML VIAL SUBCUT SCH (08:50)
[2018-07-15] MEDS: ALLOPURINOL 300 MG TABLET PO SCH (08:50)
[2018-07-15] MEDS: TAMSULOSIN HCL 0.4MG SR CAPSULE PO SCH (08:50)
[2018-07-15] MEDS: METHYLPREDNISOLONE SOD SUCC 40 MG/ML VIAL IV SCH (08:50)
[2018-07-15] MEDS: METOPROLOL TARTRATE 50MG TABLET PO SCH (08:50)
[2018-07-15] MEDS: PANTOPRAZOLE SODIUM 40 MG/VIAL IV SCH (08:50)
[2018-07-15] MEDS: FUROSEMIDE 100MG/10ML VIAL IVP SCH (08:50)
[2018-07-15] MEDS: NYSTATIN POWDER 15GM TOP SCH (08:52)
[2018-07-15 12:00] VITALS: BP 139/87
[2018-07-15 13:37] VITALS: BP 139/87
== END 2018-07-15 16:00 | disposition hospice, home (50) | DRG 640 ==
LOC: ER 09:15 → 3WST 12:22 → EDBEDREQSVC 12:27 → EDBEDREQ 12:27 → ENRESERV 21:34 → CANRESERV 21:34 → CANBEDREQ 23:19 → EDBEDREQSVC 23:19 → ENRESERV 07-05 01:34 → 3WST 07-05 13:25 → 7WST 07-08 02:12
PROVIDERS: ADMIT Internal Medicine; ATTEND Internal Medicine
PROC: 5A1D70Z Performance of Urinary Filtration, Intermittent, Less than 6 Hours Per Day (ICD-10-PCS; 2018-07-04)
PROC: 5A1D70Z Performance of Urinary Filtration, Intermittent, Less than 6 Hours Per Day (ICD-10-PCS; 2018-07-07)
PROC: 5A1D70Z Performance of Urinary Filtration, Intermittent, Less than 6 Hours Per Day (ICD-10-PCS; 2018-07-08)
PROC: 5A1D70Z Performance of Urinary Filtration, Intermittent, Less than 6 Hours Per Day (ICD-10-PCS; principal; 2018-07-11)
PROC: 0JPT3XZ Removal of Tunneled Vascular Access Device from Trunk Subcutaneous Tissue and Fascia, Percutaneous Approach (ICD-10-PCS; 2018-07-14)
DX: E83.52 Hypercalcemia (principal); G93.41 Metabolic encephalopathy; N18.6 End stage renal disease; J96.91 Respiratory failure, unspecified with hypoxia; E43 Unspecified severe protein-calorie malnutrition; E87.1 Hypo-osmolality and hyponatremia; C34.90 Malignant neoplasm of unspecified part of unspecified bronchus or lung; N39.0 Urinary tract infection, site not specified; I82.C12 Acute embolism and thrombosis of left internal jugular vein; I12.0 Hypertensive chronic kidney disease with stage 5 chronic kidney disease or end stage renal disease; E87.2 Acidosis; J45.901 Unspecified asthma with (acute) exacerbation; Z68.41 Body mass index [BMI] 40.0-44.9, adult; E87.6 Hypokalemia; C14.0 Malignant neoplasm of pharynx, unspecified; R62.7 Adult failure to thrive; E66.01 Morbid (severe) obesity due to excess calories; J44.9 Chronic obstructive pulmonary disease, unspecified; E78.00 Pure hypercholesterolemia, unspecified; E78.5 Hyperlipidemia, unspecified; E11.22 Type 2 diabetes mellitus with diabetic chronic kidney disease; G47.33 Obstructive sleep apnea (adult) (pediatric); I25.10 Atherosclerotic heart disease of native coronary artery without angina pectoris; M10.9 Gout, unspecified; T38.0X5A Adverse effect of glucocorticoids and synthetic analogues, initial encounter; D64.9 Anemia, unspecified; E83.42 Hypomagnesemia; E83.39 Other disorders of phosphorus metabolism; Z51.5 Encounter for palliative care; Z99.2 Dependence on renal dialysis; Z66 Do not resuscitate; Z82.49 Family history of ischemic heart disease and other diseases of the circulatory system; Z86.718 Personal history of other venous thrombosis and embolism; Z87.891 Personal history of nicotine dependence; Z92.3 Personal history of irradiation; Z99.81 Dependence on supplemental oxygen; Y92.89 Other specified places as the place of occurrence of the external cause; Z79.84 Long term (current) use of oral hypoglycemic drugs
CPT/HCPCS: 36415; 36589; 36600; 71045; 80048; 80162; 80202; 82140; 82330; 82375; 82805; 82962; 83605; 83735; 84100; 84134; 84145; 84153; 84484; 84550; 85027; 93005; 93306; 94640; 96361; 96365; 96375; 97116; 97162; 97530; 99291; A6261; C1893; C9113; J0500; J0885; J1160; J1170; J1200; J1644; J1815; J1940; J2270; J2430; J2543; J2920; J3370; J3475; J3480; J3490; J7030; J7040; J7050; J7060; J7620; J7626; G0103